=== PATIENT | male | born 1965 ===

== ENCOUNTER 2022-04-12 06:55 | Day surgery (SDC) | payer OTHER ==
[~2022-04-12] VITALS: Ht 177.8 cm; Wt 89.8 kg
[~2022-04-12 06:55] MED LIST: NEXIUM40 M1 PO; ZESTRIL10 M1 PO
== END 2022-04-12 18:10 | disposition home or self-care (01) ==
LOC: CIR.AMB 06:55
PROVIDERS: ATTEND Colon & Rectal Surgery
DX: K64.2 Third degree hemorrhoids (principal); K64.4 Residual hemorrhoidal skin tags; K62.2 Anal prolapse; I10 Essential (primary) hypertension; K57.90 Diverticulosis of intestine, part unspecified, without perforation or abscess without bleeding; R15.9 Full incontinence of feces; K21.9 Gastro-esophageal reflux disease without esophagitis; Z86.16 Personal history of COVID-19